=== PATIENT | male | born 1985 | race Two or more races ===

== ENCOUNTER 2025-02-04 13:12 | Inpatient (IN) | payer MEDICAID, OTHER ==
[~2025-02-04] VITALS: Ht 182.9 cm; Wt 111.3 kg
[~2025-02-04 13:12] MED LIST: ASPI1CHW5 PO; ATOR10TA PO; CLOP75TA70 PO; ISOS1TAB28 PO; LOSA-535 PO; NITR0.4S29 SL; PANT40TA2 PO
[2025-02-04 13:36] VITALS: PULSE 110; RESP 20; O2SAT 97
--- NOTE | 2025-02-04 13:53 | ED.PDOC ---
History of Present Illness HPI Comments 39 y.o male with PMHx of HTN and hyperlipidemia, presents to the ED for multiple complaints which include bilateral flank pain, SOB, generalized headache, and a cough with white phlegm sputum that started 1 day ago. Patient reports recent hospital admission at [place] 4 days ago, had an angiogram done and was diagnose with a NV/ heart block. Patient was discharged yesterday but presents today with symptoms describing a "foggy state of mind" with 10/10 bilateral flank pain. Patient reports receiving pain medication such as Morphine at [facility] for his migraine but denied any pain relief. Patient also mentions tachycardiac episodes monitored at home by home pressure machine with HR reading in the 119-120's. Patient denies any chest pain, fever, chills, nausea, vomiting, diarrhea, leg swelling, pain. Patient reports quitting tobacco and marijuana recently and last used 4 days ago. Chief Complaint: Shortness of Breath Time Seen by MD: 13:38 Primary Care Provider: none Reviewed Notes: Nurses Notes, Medications, Allergies Allergies: Coded Allergies: NO KNOWN ALLERGIES (Unverified , 02/04/25) Information Source: Patient Mode of Arrival: Wheelchair Severity: Moderate Timing: Hours Duration: Since onset Prehospital treatment: None Associated signs and symptoms Shortness for breath with weakness and flank pain Past Medical History PAST MEDICAL HISTORY: High Lipids, HTN, NV Surgical History: Cholecystectomy Family History Family History: Family hx of DM, Family hx of Cancer, Family hx of heart rolando, Family hx of stroke Social History Smoker: Quit Less Than 1 Year, Cigarettes Alcohol: Denies ETOH Use Drugs: Marijuana (quit 4 days ago ) Lives In: Home Constitutional: denies: chills, diaphoresis, fatigue, fever, malaise, sweats, weakness, others EENTM: denies: blurred vision, double vision, ear bleeding, ear discharge, ear drainage, ear pain, ear ringing, eye pain, eye redness, hearing loss, mouth pain, mouth swelling, nasal discharge, nose bleeding, nose congestion, nose pain, photophobia, tearing, throat pain, throat swelling, voice changes, others Respiratory: reports: cough, SOB at rest, shortness of breath, SOB with excertion; denies: hemoptysis, orthopnea, stridor, wheezing, others Cardiovascular: denies: chest pain, dizzy spells, diaphoresis, Dyspnea on exertion, edema, irregular heart beat, left arm pain, lightheadedness, palp itations, PND, syncope, others Gastrointestinal: denies: abdomen distended, abdominal pain, blood streaked bowels, constipated, diarrhea, dysphagia, difficulty swallowing, hematemesis, melena, nausea, poor appetite, poor fluid intake, rectal bleeding, rectal pain, vomiting, others Genitourinary: reports: flank pain; denies: burning, dysuria, frequency, hematuria, incontinence, penile discharge, penile sore, pain, testicle pain, testicle swelling, urgency, others Neurological: reports: headache; denies: dizziness, fainting, left sided numbness, left sided weakness, numbness, paresthesia, pre-existing deficit, right sided numbness, right sided weakness, seizure, speech problems, tingling, tremors, weakness, others Musculoskeletal: denies: back pain, gout, joint pain, joint swelling, muscle pain, muscle stiffness, neck pain, others Integumetry: denies: bruises, change in color, change in hair/nails, dryness, laceration, lesions, lumps, rash, wounds, others Allergic/Immunocompromised: denies: Difficulty Healing, Frequent Infections, Hives, Itching, others Hematologic/Lymphatic: denies: anemia, blood clots, easy bleeding, easy bruising, swollen glands, others Endocrine: denies: excessive hunger, excessive sweating, excessive thirst, excessive urination, flushing, intolerance to cold, intolerance to heat, unexplained weight gain, unexplained weight loss, others Psychiatric: denies: anxiety, bipolar disorder, depression, hopeless, panic disorder, schizophrenia, sleepless, suicidal, others All Other Systems: Reviewed and Negative Physical Exam General Appearance: Moderate Distress HEENT: Normal ENT Inspection, Pharynx Normal, TMs Normal Neck: Full Range of Motion, Non-Tender, Normal, Normal Inspection Respiratory: Chest Non-Tender, Lungs Clear, No Accessory Muscle Use, No Respiratory Distress, Normal Breath Sounds Cardiovascular: No Edema, No JVD, No Murmur, No Gallop, Tachycardia Breast Exam: Deferred Gastrointestinal: No Organomegaly, Non Tender, No Pulsatile Mass, Normal Bowel Sounds, Soft Genitalia: Deferred Pelvic: Deferred Rectal: Deferred Extremities: No calf tenderness, Normal capillary refill, No pedal edema Musculoskeletal : Apperance: Normal Neurologic: Alert, tube tester II-XII nml as Tested, Motor Weakness, Normal Affect, Normal Mood, No Sensory Deficits Cerebellar Function: Normal Reflexes: Normal Skin: Dry, Pallor, Warm Lymphatic: No Adenopathy Was a procedure done? Was a procedure done?: No EKG EKG : Pulse Rate (adult): 110 [place]: Normal Cardiac Rhythm: ST Block: None ST: Nonsp Differential Dx Considerations may include: Migraines, PNA, Tachycardia, Electrolyte Imbalance, Dehydration, Viral Syndrome, Kidney stones, UTI, URI X-Ray, Labs, Meds, VS Vital Signs Date Time Temp Pulse Resp B/P (MAP) Pulse Ox O2 Delivery O2 Flow Rate FiO2 02/04/25 18:00 100.4 91 16 123/83 (96) 94 100.4 02/04/25 17:53 93 16 123/83 02/04/25 17:23 122 20 132/84 02/04/25 17:18 110 02/04/25 16:28 122 20 97 Nasal Cannula* 2 28 02/04/25 16:00 103.1 122 20 132/76 (94) 94 103.1 02/04/25 16:00 103.1 113 20 02/04/25 13:36 110 20 97 Room Air* 0 21 02/04/25 13:36 97.9 110 20 116/75 (89) 97 97.9 02/04/25 13:30 110 02/04/25 13:24 98.3 110 20 116/75 (89) 97 98.3 02/04/25 13:23 20 97 Room Air* 0 21 Lab Test 02/04/25 17:50 02/04/25 17:18 02/04/25 15:19 02/04/25 14:04 Range/Units Urine Color Yellow Yellow Urine Clarity Clear Clear Urine pH 6.0 5.0-9.0 Urine Specific [place] 1.042 H 1.001-1.035 Urine Protein 1+ H Negative Urine Ketones 1+ H Negative Urine Blood Negative Negative /uL Urine Nitrite Negative Negative Urine Bilirubin Negative Negative Urine Urobilinogen Normal Negative mg/dL Urine Leukocyte Esterase Negative Negative /uL Urine RBC <1 0 - 3 /hpf Urine Microscopic WBC 1 0-3 /HPF Urine Squamous Epithelial Cells Few <5 /hpf Urine Bacteria None seen None Seen /hpf Urine Granular Casts Few 0 /lpf Urine Mucus Few None Seen Urine Glucose Normal Normal mg/dL Urine Opiates Screen Pending Urine Fentanyl Screen Pending Urine Barbiturates Screen Pending Urine Phencyclidine Screen Pending Urine Amphetamines Screen Pending Urine Benzodiazepines Screen Pending Urine Cocaine Screen Pending Urine Cannabinoids Screen Pending Lactic Acid Level 1.4 0.4-2.0 mmol/L Troponin I High Sensitivity 1263 *H 1088 *H 1190 *H </=54 ng/L White Blood Count 6.2 4.4-10.8 10^3/uL Red Blood Count 5.09 4.5-5.90 10^6/uL Hemoglobin 15.7 13.5-17.5 g/dL Hematocrit 45.9 41.0-53.0 % Mean Corpuscular Volume 90.2 80.0-100.0 fL Mean Corpuscular Hemoglobin 30.9 28.0-32.0 pg Mean Corpuscular Hemoglobin Concent 34.3 32.0-36.0 g/dL Red Cell Distribution Width 12.6 11.8-14.3 % Platelet Count 154 140-450 10^3/uL Mean Platelet Volume 9.2 6.9-10.8 fL Neutrophils (%) (Auto) 82.7 H 37.0-80.0 % Lymphocytes (%) (Auto) 3.7 L 10.0-50.0 % Monocytes (%) (Auto) 12.3 H 0.0-12.0 % Eosinophils (%) (Auto) 0.9 0.0-7.0 % Basophils (%) (Auto) 0.4 0.0-2.0 % Neutrophils # (Auto) 5.1 1.6-8.6 10 ^3/uL Lymphocytes # (Auto) 0.2 L 0.4-5.4 10 ^3/uL Monocytes # (Auto) 0.8 0-1.3 10 ^3/uL Eosinophils # (Auto) 0.1 0-0.8 10 ^3/uL Basophils # (Auto) 0 0-0.2 10 ^3/uL Nucleated Red Blood Cells 0.1 % Sodium Level 137 136-145 mmol/L Potassium Level 4.2 3.5-5.1 mmol/L Chloride Level 105 98-107 mmol/L Carbon Dioxide Level 24 20-31 mmol/L Anion Gap 8 5-15 Blood Urea Nitrogen 18 9-23 mg/dL Creatinine 1.13 0.700-1.30 mg/dL Glomerular Filtration Rate Calc 86 >90 mL/min BUN/Creatinine Ratio 15.9 10.0-20.0 Serum Glucose 95 74-106 mg/dL Calcium Level 10.4 8.7-10.4 mg/dL Current Medications Medications (Trade) Dose Ordered Sig/Froy Route Start Time Stop Time Status Last Admin Hydromorphone HCl (Dilaudid Injection) 1 mg ONCE ONCE IV 02/04/25 14:00 02/04/25 14:01 DC 02/04/25 17:23 Ondansetron HCl (Zofran) 4 mg ONCE ONCE IV 02/04/25 14:00 02/04/25 14:01 DC 02/04/25 17:23 Sodium Chloride 2,350 ml @ 2,350 mls/hr ONCE ONCE IV 02/04/25 17:00 02/04/25 17:59 DC 02/04/25 17:23 Vancomycin HCl 250 ml @ 250 mls/hr ONCE ONCE IV 02/04/25 17:00 02/04/25 17:59 DC 02/04/25 17:24 Ceftriaxone Sodium 50 ml @ 100 mls/hr ONCE ONCE IV 02/04/25 17:00 02/04/25 17:29 DC 02/04/25 17:24 Sodium Chloride 1,000 ml @ 125 mls/hr Q8H ONCE IV 02/04/25 17:00 02/05/25 00:59 02/04/25 18:25 CLINICAL INFORMATION: Headache. IMPRESSION: No CT evidence of acute intracranial abnormality. The patient was given Dilaudid 1 mg IV push for the pain The patient was given Zofran 4 mg IV push for the nausea The patient was given normal saline as a bolus per sepsis protocol Blood cultures x2 were drawn The patient was then given vancomycin and Rocephin IV piggyback following the cultures The patient's troponin level came back at 1190 then went down somewhat then went back up to 1263 The CBC and chemistry panel are within normal limits The urine test is negative for infection The urine tox is pending We did get a Cardiology consult on this patient The patient was now being admitted to the hospitalist We did order sepsis protocol. Images Reviewed?: Images reviewed and evaluated by me Time of 1ST Reevaluation: 13:53 Reevaluation 1ST: Unchanged Patient Education/Counseling: Diagnosis, Treatment, Prognosis Family Education/Counseling: No Family Present Departure 1 Departure Time of Disposition: 18:52 Impression: Primary Impression: Sepsis Qualified Codes: A41.9 - Sepsis, unspecified organism Additional Impressions: Elevated troponin Generalized weakness Disposition: ADMITTED INPATIENT Admit to: Tele Condition: Fair Critical Care Note Critical Care Time?: Yes (55 min-critical care time only) Stability Stability form required: Yes Unstable for transfer: ICU, CCU, PCU, TOM (Intensive VS monitoring), ED Physician Assesment (Clinical assesment) I personally scribed for ALAN HOBBS MD ([email or web address]) on 02/04/25 at 13:53. Electronically submitted by Marietta Raymundo ([facility]). I personally scribed for ALAN HOBBS MD ([email or web address]) on 02/04/25 at 15:26. Electronically submitted by Marietta Raymundo ([facility]). ALAN HOBBS MD Feb 04, 2025 13:53
[2025-02-04 14:26] LABS: Basophils # (auto) 0 10 ^3/uL (0-0.2); Basophils % (auto) 0.4 % (0.0-2.0); Eosinophils # (auto) 0.1 10 ^3/uL (0-0.8); Eosinophils % (auto) 0.9 % (0.0-7.0); Hematocrit 45.9 % (41.0-53.0); Hemoglobin 15.7 g/dL (13.5-17.5); Lymphocytes # (auto) 0.2 10 ^3/uL (0.4-5.4); Lymphocytes % (auto) 3.7 % (10.0-50.0); Mean Corpuscular Hemoglobin 30.9 pg (28.0-32.0); Mean Corpuscular Hgb Conc. 34.3 g/dL (32.0-36.0); Mean Corpuscular Volume 90.2 fL (80.0-100.0); Monocytes # (auto) 0.8 10 ^3/uL (0-1.3); Monocytes % (auto) 12.3 % (0.0-12.0); Neutrophils # (auto) 5.1 10 ^3/uL (1.6-8.6); Neutrophils % (auto) 82.7 % (37.0-80.0); Nucleated Red Blood Cells % 0.1 %; Platelet Count (auto) 154 10^3/uL (140-450); Red Blood Cells 5.09 10^6/uL (4.5-5.90); Red Cell Distribution Width 12.6 % (11.8-14.3); White Blood Cell 6.2 10^3/uL (4.4-10.8)
[2025-02-04 14:31] LABS: Anion Gap 8 (5-15); Carbon Dioxide 24 mmol/L (20-31); Chloride 105 mmol/L (98-107); Potassium 4.2 mmol/L (3.5-5.1); Sodium 137 mmol/L (136-145)
--- NOTE | 2025-02-04 14:31 | DVH ---
CLINICAL INFORMATION: Headache. TECHNIQUE: Axial imaging was obtained through the brain without contrast. Coronal and sagittal reform atted images were obtained, reviewed, and stored. Images were reviewed in brain and bone windows. Al l CT scans at this medical facility are performed using dose modulation techniques as appropriate to a performed exam including the following: Automated exposure control was utilized; adjustment of the MA and/or KV according to patient size; and use of iterative reconstruction technique. CTDIvol = 63.9 2 mGy DLP = 1259.54 mGy-cm COMPARISON: None FINDINGS: There is no acute intracranial hemorrhage. No mass effect or midline shift. The ventricles and sulci are within normal limits in size for age. Basal cisterns are patent. The calvarium is unre markable. Paranasal sinuses and mastoid air cells are clear. IMPRESSION: No CT evidence of acute intracranial abnormality.
[2025-02-04 14:37] LABS: BUN/Creatinine Ratio 15.9 (10.0-20.0); Blood Urea Nitrogen 18 mg/dL (9-23); Glucose 95 mg/dL (74-106)
[2025-02-04 14:42] LABS: Calcium 10.4 mg/dL (8.7-10.4)
--- NOTE | 2025-02-04 16:23 | DVH ---
CHEST RADIOGRAPH Indication: pain Technique: Single frontal view of the chest was obtained Comparison: None FINDINGS: Lines and Tubes: None Lungs: No focal consolidation. Pleura: No effusion. No pneumothorax. Cardiomediastinal contours: Unremarkable Bones: No acute osseous abnormality. IMPRESSION: 1. No acute cardiopulmonary disease.
[2025-02-04 16:28] VITALS: PULSE 122; RESP 20; O2SAT 97
[2025-02-04] MEDS ORDERED: cefTRIAXone 1GM/50ML D5W 50 ML IV ONE (17:00)
[2025-02-04] MEDS ORDERED: MORPHINE SULFATE INJ 2 MG/ml SYRG IV PRN ×2 (17:00→19:00)
[2025-02-04] MEDS: IOHEXOL 300 MG/ML 100ML BOTTLE IJ ONE (17:01)
--- NOTE | 2025-02-04 17:02 | DVHINCON2 ---
Date Seen: Feb 04, 2025 Referring Physician MD Atul Reason for Consultation NSTEMI History of Present Illness A 39-year-old man who presented to the emergency room with a chief complaint of bilateral flank pain. The patient presents with complaints of bilateral flank pain, migraine headache, brain fogginess, a foamy cough, and pyrexia. Cardiology consulted given an initial troponin level in the 1900s ng/L. The patient denies any chest pain. Reports a recent admission to [facility] where he underwent a cardiac catheterization without catheter based intervention with paperwork at bedside stating he was admitted for ACS and uncontrolled hypertension. Discharge instructions included the diagnosis of spontaneous coronary artery dissection. He was sent home on dual antiplatelet t herapy, statin, isosorbide mononitrate, and NTG SL p.r.n.. A 12 lead electrocardiogram revealed a sinus tachycardia rhythm without evidence of ischemia. Other significant medical history includes hypertension, migraine headaches, cannabinoid use, recent tobacco use x 24 pack years quitting this past , remote history of cocaine/methamphetamines quitting 3 years ago, and obesity. Past Medical History Past medical history reviewed. No other significant than mentioned above. Past Surgical History Cholecystectomy Family History Family history reviewed. Maternal grandmother with multiple CVAs and MIs. Social History See HPI. Allergies: Coded Allergies: NO KNOWN ALLERGIES (Unverified , 02/04/25) Home Meds Home medications reviewed. Review of Systems Constitutional: No symptom reported Ears, Nose, & Throat: No symptom reported Eyes: No symptom reported Neurological: Migraine headache, foggy mentation Pulmonary/Respiratory: Foamy cough Cardiovascular: No symptom reported Gastrointestinal: Bilateral flank pain Genitourinary: No symptom reported Musculoskeletal: No symptom reported Skin: No symptom reported Psychiatric: No symptom reported Endocrine: No symptom reported Hemotologic/Lymphatic: No symptom reported Vital Signs Vital Signs Date Time Temp Pulse Resp B/P (MAP) Pulse Ox O2 Delivery O2 Flow Rate FiO2 02/04/25 16:28 122 20 97 Nasal Cannula* 2 28 02/04/25 16:00 98.3 132/76 (94) 98.3 Physical Exam General Appearance: Cooperative. Well developed. Obese. Mild acute distress Head Exam: Normal inspection Neck Exam: Normal inspection. Non-tender. Normal alignment Pulmonary/Respiratory: Chest non-tender. Clear bilateral breath sounds Cardiovascular/Chest: Regular rate and rhythm. S1, S2. Sinus tachycardia without evidence of ischemia. No murmurs. No JVD. Peripheral Pulses: 2+ Radial (R). 2+ Radial (L). 2+ Pedal (R). 2+ Pedal (L) Abdominal Exam: Normal bowel sounds. Soft. Ankle Exam: Negative ankle edema Lower extremities: Negative lower extremity edema Neuro/Mental Status: A&O x4. Coherent Thoughts/Psych: Normal thought pattern. Anxious Appearance: Mild acute distress Skin Exam: Normal inspection. Normal color. Hot. Dry Labs/Diagnostic Data Labs Test 02/04/25 15:19 02/04/25 14:04 Range/Units Troponin I High Sensitivity 1088 *H </=54 ng/L White Blood Count 6.2 4.4-10.8 10^3/uL Red Blood Count 5.09 4.5-5.90 10^6/uL Hemoglobin 15.7 13.5-17.5 g/dL Hematocrit 45.9 41.0-53.0 % Mean Corpuscular Volume 90.2 80.0-100.0 fL Mean Corpuscular Hemoglobin 30.9 28.0-32.0 pg Mean Corpuscular Hemoglobin Concent 34.3 32.0-36.0 g/dL Red Cell Distribution Width 12.6 11.8-14.3 % Platelet Count 154 140-450 10^3/uL Mean Platelet Volume 9.2 6.9-10.8 fL Neutrophils (%) (Auto) 82.7 H 37.0-80.0 % Lymphocytes (%) (Auto) 3.7 L 10.0-50.0 % Monocytes (%) (Auto) 12.3 H 0.0-12.0 % Eosinophils (%) (Auto) 0.9 0.0-7.0 % Basophils (%) (Auto) 0.4 0.0-2.0 % Neutrophils # (Auto) 5.1 1.6-8.6 10 ^3/uL Lymphocytes # (Auto) 0.2 L 0.4-5.4 10 ^3/uL Monocytes # (Auto) 0.8 0-1.3 10 ^3/uL Eosinophils # (Auto) 0.1 0-0.8 10 ^3/uL Basophils # (Auto) 0 0-0.2 10 ^3/uL Nucleated Red Blood Cells 0.1 % Sodium Level 137 136-145 mmol/L Potassium Level 4.2 3.5-5.1 mmol/L Chloride Level 105 98-107 mmol/L Carbon Dioxide Level 24 20-31 mmol/L Anion Gap 8 5-15 Blood Urea Nitrogen 18 9-23 mg/dL Creatinine 1.13 0.700-1.30 mg/dL Glomerular Filtration Rate Calc 86 >90 mL/min BUN/Creatinine Ratio 15.9 10.0-20.0 Serum Glucose 95 74-106 mg/dL Calcium Level 10.4 8.7-10.4 mg/dL Assessment NSTEMI with recent diagnosis of spontaneous coronary artery dissection Hypertension Recent tobacco use Cannabinoid use Obesity Plan/Recommendation (Dr. Stephens) The patient with a baseline troponin level of 1900s ng/L presents chest pain- free and with a normal 12 lead electrocardiogram without evidence of ischemia. Reports being discharged from [facility] where he underwent a recent cardiac catheterization without catheter based intervention and paperwork with diagnosis of SCAD. He was discharged home last night with DAPT, lipid lowering agent, isosorbide mononitrate, and NTG SL p.r.n. Obtain medical records including cardiac catheterization and transthoracic echocardiogram. Trend troponin levels. Consider septic workup and rule out an acute abdomen/urinary etiologies. Further orders per clinical course. Thank you for allowing us to participate in this patient's care. Please call if you have any questions or concerns. Critical care time: 40 min. This medical document was created using an electronic medical record system with voice recognition software and computerized dictation system. Although this document has been carefully reviewed, there might still be some phonetic and typographical errors. Occasional wrong-word or ``sound-alike substitutions may have occurred due to the inherent limitations of voice recognition software. These areas are purely typographical due to imperfections of the software programs and do not reflect any compromise in the patient's medical care. Please read the chart carefully and recognize, using context, where these substitutions have occurred. Plan discussed with: Patient, Other NYHA Physical activity limitations: NA Date of Service: Feb 04, 2025 Billing Provider: STEFFANY MAGANA Cardiology Common Codes: 83335-[id number] CARE 30-74 MIN STEFFANY MAGANA Feb 04, 2025 17:02
[2025-02-04] MEDS: SODIUM CHLORIDE 0.9% 2,350 ML IV ONE (17:23)
[2025-02-04] MEDS: HYDROmorphone HCL 2 MG/ML VL/or syr IV ONE (17:23)
[2025-02-04] MEDS: ONDANSETRON HCL 4 MG/2 ML VIAL IV ONE (17:23)
[2025-02-04] MEDS: VANCOMYCIN 1GM/250ML KIT 250 ML IV ONE (17:24)
[2025-02-04] MEDS: cefTRIAXone 1GM/50ML D5W 50 ML IV ONE (17:24)
[2025-02-04 18:23] LABS: Urine Bacteria None Seen /hpf (None Seen)
[2025-02-04] MEDS: SODIUM CHLORIDE 0.9% 1,000 ML IV ONE (18:25)
[2025-02-04] MEDS: NICOTINE 14 MG/24HR TOPICAL PATCH TD ONE (18:26)
--- NOTE | 2025-02-04 18:26 | DVH ---
Exam: CT CT AB PELVIS W WO CON-IV ONLY History: Flank pain bilaterally Comparison Study: None available at time of dictation. Technique: Multidetector spiral CT of the abdomen and pelvis was performed from lung bases to pubic s ymphysis. Initial imaging was done without IV contrast, followed by post contrast images of the abdom en and pelvis. Intravenous contrast was administered during this examination. portal venous/arterial/ multiphase imaging was obtained. Axial, coronal and sagittal multiplanar reformats were performed by the technologist on a separate workstation. Radiation Dose : CT Dose: CTDI volume is 23 mGy. Dose-length product is 1354 mGy*cm Findings: Lung Bases: No acute or significant lung base finding. Normal heart size. No pleural or pericardial effusion. Liver: The liver is normal in size. No focal lesions. Normal hepatic vascular enhancement. Gallbladder and Biliary Tree: Gallbladder has been removed. No biliary dilatation. Spleen: Unremarkable Pancreas: The pancreas is normal in appearance without focal lesions or abnormal enhancement. Adrenal Glands: Unremarkable Kidneys: Kidneys demonstrate normal symmetric enhancement without focal lesions, calculi or hydroneph rosis. Bladder: Unremarkable Bowel: The stomach is grossly normal in appearance. Small bowel and colon are normal in caliber and d istribution. The appendix is not visualized; however, no secondary findings of acute appendicitis brisa ntified. Ascites: Absent Lymphadenopathy: No mesenteric, retroperitoneal or periportal lymphadenopathy. Abdominal Wall and Mesentery: Unremarkable. Vasculature: The visualized abdominal aorta is normal in size and caliber. Abdominal and pelvic vess els demonstrate normal enhancement. Pelvic Organs: Unremarkable Musculoskeletal: No aggressive focal bony lesions, acute fractures or dislocation. IMPRESSION: 1. No acute abdominal or pelvic finding. No evidence of urinary tract stones or obstructive uropathy. Radiation optimization: All CT scans at this facility use at least one of these dose optimization zach hniques: automated exposure control mA and/or kV adjustment per patient size (includes targeted exam s where dose is matched to clinical indication) or iterative reconstruction.
[2025-02-04 18:49] LABS: Urine Blood Negative /uL (Negative); Urine Clarity Clear (Clear); Urine Color Yellow (Yellow); Urine Mucus FEW (None Seen); Urine Protein, UAD 1+ (Negative); Urine Specific Gravity 1.042 (1.001-1.035); Urine Squamous Epithelial Cell FEW /hpf (<5); Urine Urobilinogen Normal (Negative); Urine WBC 1 /HPF (0-3)
[2025-02-04 18:53] LABS: Cannabinoid Screen, Urine Pos (NEGATIVE); Opiate Scree,Urine Neg (NEGATIVE)
[2025-02-04 18:54] LABS: Amphetamine Screen, Urine Neg (NEGATIVE); Barbiturate Scree,Urine Neg (NEGATIVE); Benzodiazephine Screen, Urine Neg (NEGATIVE); Cocaine Screen, Urine Neg (NEGATIVE); Phencyclidine Screen, Urine Neg (NEGATIVE)
[2025-02-04] MEDS ORDERED: ONDANSETRON HCL 4 MG/2 ML VIAL IV PRN (19:00)
[2025-02-04] MEDS ORDERED: NITROGLYCERIN 0.4 MG SL TAB SL PRN (19:00)
[2025-02-04 19:30] VITALS: PULSE 86; RESP 15; O2SAT 99
[2025-02-04] MEDS: HYDROcodone-ACET 5/325MG TAB PO PRN (20:54)
[2025-02-04] MEDS: ATORVASTATIN 20 MG TAB PO SCH (22:19)
--- NOTE | 2025-02-04 22:38 | DVHHP2 ---
History of Present Illness Reason for Visit: Generalized weakness History of Present Illness 39-year-old female presents for evaluation of generalized weakness. . Patient reports being discharged from [facility] three days ago after being admitted and treated for an SD. he states being discharged yesterday and since then he has been feeling weak. He reports shortness for breath with mild exertion. Denies chest pain or palpitations. Reports bilateral flank pain. No abdominal pain. No other acute complaints reported Past Medical History Hypertension, mi, dyslipidemia Past Surgical History Cholecystectomy Family History Diabetes mellitus, heart disease and cancer Smoke: Quit ALCOHOL: none Drugs: Marijuana Lives: with Family Review of Systems Review of Systems Review of systems are currently negative otherwise addressed in HPI. Allergies: Coded Allergies: NO KNOWN ALLERGIES (Unverified , 02/04/25) Medications Current Medications Medications Dose Ordered Sig/Froy Route Start Time Stop Time Status Last Admin Dose Admin Nicotine 1 patch DAILY TD 02/05/25 10:00 Aspirin 81 mg DAILY PO 02/05/25 10:00 Clopidogrel Bisulfate 75 mg DAILY PO 02/05/25 10:00 Atorvastatin Calcium 20 mg HS PO 02/04/25 22:00 02/04/25 22:19 20 MG Isosorbide Mononitrate 30 mg DAILY PO 02/05/25 10:00 Nitroglycerin 0.4 mg Q5MINP PRN SL 02/04/25 19:00 Morphine Sulfate 2 mg Q30M PRN IV 02/04/25 19:00 Ceftriaxone Sodium 50 ml @ 100 mls/hr DAILY@09 IV 02/05/25 09:00 Acetaminophen/ Hydrocodone Bitart 1 tab Q4HP PRN PO 02/04/25 19:00 02/04/25 20:54 1 TAB Ondansetron HCl 4 mg Q4HP PRN IV 02/04/25 19:00 Acetaminophen 650 mg Q6HP PRN PO 02/04/25 19:00 Exam Vital Signs Vital Signs Date Time Temp Pulse Resp B/P (MAP) Pulse Ox O2 Delivery O2 Flow Rate FiO2 02/04/25 21:55 84 18 138/86 (103) 99 02/04/25 19:30 98.3 98.3 02/04/25 19:30 Room Air* 0 21 Exam Gen: 39-year-old male in mild distress Skin: Warm, dry, normal color and texture, no rash. HEENT: Normocephalic atraumatic, mucous membranes moist and pink. Neck: Cervical and supraclavicular nodes normal without enlargement, trachea is midline, thyroid gland is normal without masses. Pulmonary: Clear to auscultation and percussion bilaterally. Cardiac: Regular rate and rhythm. No murmur Abdomen: Soft, nontender, nondistended, bowel sounds present all 4 quadrants, no guarding, no rigidity, no organomegaly. Extremities: No cyanosis, clubbing, no edema Neuro: Cranial nerves II through XII grossly intact, normal affect and speech, no focal motor deficits. Labs/Xrays ORDERING PHYSICIAN: ALAN HOBBS MD PROCEDURE(s): HWOCT - HEAD WITHOUT CONTRAST REASON: BRYANT ORDER NUMBER(s): [id number], ACCESSION NUMBER(s): [id number] CLINICAL INFORMATION: Headache. TECHNIQUE: Axial imaging was obtained through the brain without contrast. Coronal and sagittal reformatted images were obtained, reviewed, and stored. Images were reviewed in brain and bone windows. All CT scans at this medical facility are performed using dose modulation techniques as appropriate to a performed exam including the following: Automated exposure control was utilized; adjustment of the MA and/or KV according to patient size; and use of iterative reconstruction technique. CTDIvol = 63.92 mGy DLP = 1259.54 mGy-cm COMPARISON: None FINDINGS: There is no acute intracranial hemorrhage. No mass effect or midline shift. The ventricles and sulci are within normal limits in size for age. Basal cisterns are patent. The calvarium is unremarkable. Paranasal sinuses and mastoid air cells are clear. IMPRESSION: No CT evidence of acute intracranial abnormality. RING PHYSICIAN: ALAN HOBBS MD PROCEDURE(s): CXRP - CHEST PORTABLE REASON: pain ORDER NUMBER(s): [id number], ACCESSION NUMBER(s): [id number] CHEST RADIOGRAPH Indication: pain Technique: Single frontal view of the chest was obtained Comparison: None FINDINGS: Lines and Tubes: None Lungs: No focal consolidation. Pleura: No effusion. No pneumothorax. Cardiomediastinal contours: Unremarkable Bones: No acute osseous abnormality. IMPRESSION: 1. No acute cardiopulmonary disease. RING PHYSICIAN: STEFFANY MAGANA TEACHER [place] PROCEDURE(s): ABPEL - CT AB PELVIS W WO CON-IV ONLY REASON: Flank pain bilaterally ORDER NUMBER(s): [id number], ACCESSION NUMBER(s): [id number] Exam: CT CT AB PELVIS W WO CON-IV ONLY History: Flank pain bilaterally Comparison Study: None available at time of dictation. Technique: Multidetector spiral CT of the abdomen and pelvis was performed from lung bases to pubic symphysis. Initial imaging was done without IV contrast, followed by post contrast images of the abdomen and pelvis. Intravenous contrast was administered during this examination. portal venous/arterial/multiphase imaging was obtained. Axial, coronal and sagittal multiplanar reformats were performed by the technologist on a separate workstation. Radiation Dose : CT Dose: CTDI volume is 23 mGy. Dose-length product is 1354 mGy*cm Findings: Lung Bases: No acute or significant lung base finding. Normal heart size. No pleural or pericardial effusion. Liver: The liver is normal in size. No focal lesions. Normal hepatic vascular enhancement. Gallbladder and Biliary Tree: Gallbladder has been removed. No biliary dilatation. Spleen: Unremarkable Pancreas: The pancreas is normal in appearance without focal lesions or abnormal enhancement. Adrenal Glands: Unremarkable Kidneys: Kidneys demonstrate normal symmetric enhancement without focal lesions, calculi or hydronephrosis. Bladder: Unremarkable Bowel: The stomach is grossly normal in appearance. Small bowel and colon are normal in caliber and distribution. The appendix is not visualized; however, no secondary findings of acute appendicitis identified. Ascites: Absent Lymphadenopathy: No mesenteric, retroperitoneal or periportal lymphadenopathy. Abdominal Wall and Mesentery: Unremarkable. Vasculature: The visualized abdominal aorta is normal in size and caliber. Abdominal and pelvic vessels demonstrate normal enhancement. Pelvic Organs: Unremarkable Musculoskeletal: No aggressive focal bony lesions, acute fractures or dislocation. IMPRESSION: 1. No acute abdominal or pelvic finding. No evidence of urinary tract stones or obstructive uropathy. Radiation optimization: All CT scans at this facility use at least one of these dose optimization techniques: automated exposure control mA and/or kV adjustment per patient size (includes targeted exams where dose is matched to clinical indication) or iterative reconstruction. Labs Test 3/17/25 17:50 02/04/25 17:18 02/04/25 14:04 Range/Units Urine Color Yellow Yellow Urine Clarity Clear Clear Urine pH 6.0 5.0-9.0 Urine Specific [place] 1.042 H 1.001-1.035 Urine Protein 1+ H Negative Urine Ketones 1+ H Negative Urine Blood Negative Negative /uL Urine Nitrite Negative Negative Urine Bilirubin Negative Negative Urine Urobilinogen Normal Negative mg/dL Urine Leukocyte Esterase Negative Negative /uL Urine RBC <1 0 - 3 /hpf Urine Microscopic WBC 1 0-3 /HPF Urine Squamous Epithelial Cells Few <5 /hpf Urine Bacteria None seen None Seen /hpf Urine Granular Casts Few 0 /lpf Urine Mucus Few None Seen Urine Glucose Normal Normal mg/dL Urine Opiates Screen Neg NEGATIVE Urine Fentanyl Screen Neg NEGATIVE Urine Barbiturates Screen Neg NEGATIVE Urine Phencyclidine Screen Neg NEGATIVE Urine Amphetamines Screen Neg NEGATIVE Urine Benzodiazepines Screen Neg NEGATIVE Urine Cocaine Screen Neg NEGATIVE Urine Cannabinoids Screen Pos NEGATIVE Lactic Acid Level 1.4 0.4-2.0 mmol/L Troponin I High Sensitivity 1263 *H </=54 ng/L White Blood Count 6.2 4.4-10.8 10^3/uL Red Blood Count 5.09 4.5-5.90 10^6/uL Hemoglobin 15.7 13.5-17.5 g/dL Hematocrit 45.9 41.0-53.0 % Mean Corpuscular Volume 90.2 80.0-100.0 fL Mean Corpuscular Hemoglobin 30.9 28.0-32.0 pg Mean Corpuscular Hemoglobin Concent 34.3 32.0-36.0 g/dL Red Cell Distribution Width 12.6 11.8-14.3 % Platelet Count 154 140-450 10^3/uL Mean Platelet Volume 9.2 6.9-10.8 fL Neutrophils (%) (Auto) 82.7 H 37.0-80.0 % Lymphocytes (%) (Auto) 3.7 L 10.0-50.0 % Monocytes (%) (Auto) 12.3 H 0.0-12.0 % Eosinophils (%) (Auto) 0.9 0.0-7.0 % Basophils (%) (Auto) 0.4 0.0-2.0 % Neutrophils # (Auto) 5.1 1.6-8.6 10 ^3/uL Lymphocytes # (Auto) 0.2 L 0.4-5.4 10 ^3/uL Monocytes # (Auto) 0.8 0-1.3 10 ^3/uL Eosinophils # (Auto) 0.1 0-0.8 10 ^3/uL Basophils # (Auto) 0 0-0.2 10 ^3/uL Nucleated Red Blood Cells 0.1 % Sodium Level 137 136-145 mmol/L Potassium Level 4.2 3.5-5.1 mmol/L Chloride Level 105 98-107 mmol/L Carbon Dioxide Level 24 20-31 mmol/L Anion Gap 8 5-15 Blood Urea Nitrogen 18 9-23 mg/dL Creatinine 1.13 0.700-1.30 mg/dL Glomerular Filtration Rate Calc 86 >90 mL/min BUN/Creatinine Ratio 15.9 10.0-20.0 Serum Glucose 95 74-106 mg/dL Calcium Level 10.4 8.7-10.4 mg/dL B-Type Natriuretic Peptide 32.65 0-100 pg/mL Assessment/Plan Assessment/Plan Assessment NSTEMI History of SD Hypertension Sirs Plan Admit the patient to telemetry to the hospitalist Cardiology consultation Rocephin Blood culture pending Resume home medications Continue treatment per orders. Plan discussed with: Patient My Orders Orders - TISHA ENCISO Procedure Category Date Status Time Admit ADMIT 02/04/25 Transmitted 18:46 Nitroglycerin PHA 02/04/25 In Process Sublingual (Ntrostat 19:00 Morphine Sulfate PHA 02/04/25 In Process Injection 19:00 Oxygen By Nasal RT 02/04/25 Transmitted Cannula 18:46 Ceftriaxone 1gm/50ml PHA 02/05/25 In Process D5w (Rocephin) 09:00 Hydrocodone-Acet PHA 02/04/25 In Process 5/325mg Tab ([place] 19:00 Ondansetron Hcl PHA 02/04/25 In Process (Zofran) 19:00 Cardiac DIET 02/05/25 Transmitted Diet-2gna,Lofat,Lochol Breakfast Condition: Fair KORIN 02/04/25 In Process 18:50 Acetaminophen Tablet PHA 02/04/25 In Process (Tylenol Tablet) 19:00 Bedrest With Bathroom KORIN 02/04/25 In Process Privileg 18:50 Basic Metabolic Panel LAB 02/05/25 Verified 04:00 Complete Blood Count LAB 02/05/25 Verified 04:00 Date of Service: Feb 04, 2025 Billing Provider: TISHA ENCISO Common Visit Codes: [id number] INP/OBS CARE (HIGH) TISHA ENCISO Feb 04, 2025 22:38
[2025-02-05 04:23] LABS: Hematocrit 39.9 % (41.0-53.0); Hemoglobin 13.7 g/dL (13.5-17.5); Mean Corpuscular Hemoglobin 30.6 pg (28.0-32.0); Mean Corpuscular Hgb Conc. 34.2 g/dL (32.0-36.0); Mean Corpuscular Volume 89.5 fL (80.0-100.0); Platelet Count (auto) 124 10^3/uL (140-450); Red Blood Cells 4.46 10^6/uL (4.5-5.90); Red Cell Distribution Width 12.4 % (11.8-14.3); White Blood Cell 5.4 10^3/uL (4.4-10.8)
[2025-02-05 04:26] LABS: Sodium 139 mmol/L (136-145)
[2025-02-05 04:27] LABS: Anion Gap 8 (5-15); Calcium 8.8 mg/dL (8.7-10.4); Carbon Dioxide 23 mmol/L (20-31)
[2025-02-05 04:31] LABS: Basophils % (manual) 0 (0.0-2.0); Blast Cells 0; Eosinophils % (manual) 0 (0-7); Metamyelocytes % 0; Myelocytes % 0; Promyelocytes % 0; Reactive Lymphocytes 0
[2025-02-05 04:32] LABS: BUN/Creatinine Ratio 13.3 (10.0-20.0); Blood Urea Nitrogen 14 mg/dL (9-23); Chloride 108 mmol/L (98-107); Glucose 94 mg/dL (74-106)
[2025-02-05 05:20] LABS: Band Neutrophils % (manual) 7; Lymphocytes % (manual) 16 (10.0-50.0); Monocytes % (manual) 12 (0-12)
[2025-02-05 05:21] LABS: Platelet Estimate Decreased
[2025-02-05 08:41] VITALS: PULSE 78; RESP 17; O2SAT 95
[2025-02-05 08:46] LABS: Albumin 4.1 g/dL (3.2-4.8); Bilirubin, Direct 0.2 mg/dL (<0.3); Bilirubin, Total 0.4 mg/dL (0.2-1.0); Magnesium 1.7 mg/dL (1.6-2.6); Total Protein 6.5 g/dL (5.7-8.2)
[2025-02-05 08:56] LABS: CRP High Sensitivity 1.84 mg/dL (<1.0)
[2025-02-05 08:57] LABS: INR 0.97 (0.9-1.15); Prothrombin Time 10.3 sec (9.3-11.8)
[2025-02-05] MEDS ORDERED: cefTRIAXone 1GM/50ML D5W 50 ML IV SCH (09:00)
[2025-02-05 09:28] LABS: Erythrocyte Sedimentation Rate 10 mm/hr (0-20)
[2025-02-05] MEDS: ISOSORBIDE MONONITRATE ER 60 MG TAB PO SCH (10:00)
[2025-02-05] MEDS: NICOTINE 14 MG/24HR TOPICAL PATCH TD SCH (10:00)
[2025-02-05] MEDS: cefTRIAXone 1GM/50ML D5W 50 ML IV SCH (10:52)
[2025-02-05] MEDS: ASPirin 81 mg TAB PO SCH (10:53)
[2025-02-05] MEDS: CLOPIDOGREL BISULFATE 75 MG TAB PO SCH (10:53)
--- NOTE | 2025-02-05 11:02 | DVHPN2 ---
[facility] 02/05/25 1102: Consult Progress Note Date Seen: Feb 05, 2025 Subjective Review of Systems: CVS:Normal, RESPIRATORY:Normal, NEURO:Abnormal Other Systems: C/o persistent BRYANT Objective vital signs Vital Sign Date Time Temp Pulse Resp B/P (MAP) Pulse Ox O2 Delivery O2 Flow Rate FiO2 02/05/25 08:41 78 17 95 Room Air* 0 21 02/05/25 08:00 98.1 128/79 (95) 98.1 Total Intake and Output 02/04/25 02/04/25 02/05/25 15:00 23:00 07:00 Intake Total 2650 ml Output Total 200 ml Balance 2450 ml medications Current Medications Medications Dose Ordered Sig/Froy Route Start Time Stop Time Status Last Admin Dose Admin Nicotine 1 patch DAILY TD 02/05/25 10:00 Aspirin 81 mg DAILY PO 02/05/25 10:00 02/05/25 10:53 81 MG Clopidogrel Bisulfate 75 mg DAILY PO 02/05/25 10:00 02/05/25 10:53 75 MG Atorvastatin Calcium 20 mg HS PO 02/04/25 22:00 02/04/25 22:19 20 MG Isosorbide Mononitrate 30 mg DAILY PO 02/05/25 10:00 Nitroglycerin 0.4 mg Q5MINP PRN SL 02/04/25 19:00 Morphine Sulfate 2 mg Q30M PRN IV 02/04/25 19:00 Ceftriaxone Sodium 50 ml @ 100 mls/hr DAILY@09 IV 02/05/25 09:00 02/05/25 10:52 100 MLS/HR Acetaminophen/ Hydrocodone Bitart 1 tab Q4HP PRN PO 02/04/25 19:00 02/04/25 20:54 1 TAB Ondansetron HCl 4 mg Q4HP PRN IV 02/04/25 19:00 Acetaminophen 650 mg Q6HP PRN PO 02/04/25 19:00 Ergocalciferol 50,000 unit Q7D PO 02/05/25 10:00 Examination: LUNGS:Normal, CVS:Normal (NSR), NEURO:Normal laboratory and microbiology Laboratory Tests 02/05/25 03:54 Test 02/05/25 03:54 Range/Units Serum Glucose 94 74-106 mg/dL Problem List/Assessment/Plan Problem List/Assessment/Plan NSTEMI with recent diagnosis of spontaneous coronary artery dissection Hypertension Recent tobacco use Cannabinoid use Obesity Plan/Recommendation (Dr. Arrieta) The patient with flat troponin levels in the 1000s ng/L continues chest pain- free and with normal 12-lead electrocardiograms (02/04/25 & 02/05/25) without evidence of ischemia. He was recently discharged from [facility] undergoing a recent cardiac catheterization without catheter based intervention and paperwork with diagnosis of SCAD. He was discharged home on DAPT, lipid lowering agent, isosorbide mononitrate, and NTG SL p.r.n. Obtain medical records including cardiac catheterization and transthoracic echocardiogram. Continue septic work-up per primary care team. Consider a brain MRI given persistent BRYANT. Further orders per clinical course. Thank you for allowing us to participate in this patient's care. Please call if you have any questions or concerns. This medical document was created using an electronic medical record system with voice recognition software and computerized dictation system. Although this document has been carefully reviewed, there might still be some phonetic and typographical errors. Occasional wrong-word or ``sound-alike substitutions may have occurred due to the inherent limitations of voice recognition software. These areas are purely typographical due to imperfections of the software programs and do not reflect any compromise in the patient's medical care. Please read the chart carefully and recognize, using context, where these substitutions have occurred. Plan discussed with: Patient, Other Date of Service: Feb 05, 2025 Billing Provider: ALLY MAGANA Cardiology Common Codes: [id number] HOSP CARE(CHRISTIANO Grace DO 02/05/25 1948: Consult Progress Note Problem List/Assessment/Plan Problem List/Assessment/Plan The patient was seen and discussed with Ally Magana NP. I agree with her Assessment and Plan, which was formulated with me. Plan discussed with: Patient Billing Provider: CHRISTIANO ANAYA DO Cardiology Common Codes: [id number] HOSP CARE(ALLY Rodriguez Feb 05, 2025 11:02 CHRISTIANO ANAYA DO Feb 05, 2025 19:48
[2025-02-05 11:05] LABS: T3 Total 0.85 ng/mL (0.60-1.81)
[2025-02-05] MEDS: ERGOCALCIFEROL 50,000 UNIT(1.25MG) CAP PO SCH (11:05)
--- NOTE | 2025-02-05 11:05 | ECG ---
[facility] Test Date: 2025-02-05 Test Time: 11:03:22 Pat Name: CARLOS LAMAR Department: er Room: 0282T Gender: M Planner: neeru : 1985 Requested By: STEFFANY MAGANA Order Number: [id number] Reading MD: Kin Scanlon Measurements Intervals [place] Rate: 77 P: 37 SD: 132 QRS: 77 QRSD: 120 T: 37 QT: 391 QTc: 443 Interpretive Statements Sinus rhythm IVCD, consider atypical RBBB ST elevation, consider inferior injury Baseline wander in lead(s) V1 Electronically Signed On 02-06-2025 22:37:45 PDT by Kin Scanlon Please click the below link to view image of tracing.
[2025-02-05 11:06] LABS: Free T4 (Free Thyroxine) 1.14 ng/dL (0.89-1.76)
[2025-02-05] MEDS: MAGNESIUM SULFATE 1GM/100ML 100 ML IV ONE (11:47)
--- NOTE | 2025-02-05 12:29 | DVH ---
INDICATION: transamnitis, and B/l CVA tenderness TECHNIQUE: Multiple real-time sonographic images of the abdomen were obtained. COMPARISON: None FINDINGS: Liver is increased in echogenicity. The liver measures 15 cm. No intrahepatic biliary ductal dilatation is noted. Post cholecystectomy. The common duct measures 1.3 cm and is unremarkable. The right kidney measures 11.0 cm. No hydronephrosis. The left kidney measures 10.1 cm. No hydronephr osis. The spleen measures 13.0 cm, within normal limits. The echogenicity is within normal limits. The pancreas is not well visualized due to obscuration from bowel gas. The visualized portions of the IVC and aorta are grossly unremarkable. IMPRESSION: Hepatic steatosis. Spleen is top-normal in size. Common bile duct measures 1.3 cm. This is likely slightly enlarged post cholecystectomy. Clinical cor relation advised.
[2025-02-05 13:02] LABS: Rapid Influenza A Negative (Negative); Rapid Influenza B Negative (Negative)
[2025-02-05 13:12] LABS: COVID19 ANTIGEN SOFIA FIA POSITIVE (NEGATIVE)
--- NOTE | 2025-02-05 15:24 | DVHPNRES ---
Progress Note Date Seen: Feb 05, 2025 Resident Creating Document: HSARRON WORLEY RESIDENT Medical Necessity Reason Pt with a Central, PICC or Fol: No Subjective Review of Systems 39-year-old male with past medical history of dyslipidemia, hypertension, cholecystectomy who presented to the ER with a chief fever, chills and bilateral flank pain. Patient was recently hospitalized [facility] for chest pain where he was diagnosed with a spontaneous coronary artery dissection of an angiogram was performed, no stent was placed and patient was discharged on aspirin, atorvastatin, Plavix, Imdur and sublingual nitroglycerin patient went home and developed bilateral flank pain radiating to the groin, turbid urine, but denies hematuria or dysuria or urgency. In the ER, patient was febrile at 100.4 F, now afebrile. He was tachycardic but normotensive on room air, CBC was unremarkable. Tropes were trending up 1200, now trending down. BNP was 32, Cardiology was consulted recommended monitor troponin, initiated aspirin and Plavix and Imdur. Head CT was completed which showed unremarkable, abdominal CT was unremarkable, chest x-ray was negative. Liver ultrasound showed status post cholecystectomy changes along with CBD dilation. MRCP was ordered. Past medical/surgical history: See above Home medications: Aspirin, Plavix, atorvastatin, Imdur, sublingual nitroglycerin Social history: Smokes a pack of cigarettes for the past 20 years, quit 1 week, reports remote history of cocaine and meth he was 3 years ago, quit Patient seen and examined in the ER. MRCP is pending. Objective vital signs Vital Sign Date Time Temp Pulse Resp B/P (MAP) Pulse Ox O2 Delivery O2 Flow Rate FiO2 02/05/25 14:00 70 15 123/85 (98) 95 02/05/25 08:41 Room Air* 0 21 02/05/25 08:00 98.1 98.1 Total Intake and Output 02/04/25 02/04/25 02/05/25 15:00 23:00 07:00 Intake Total 2650 ml Output Total 200 ml Balance 2450 ml medications Current Medications Medications Dose Ordered Sig/Froy Route Start Time Stop Time Status Last Admin Dose Admin Nicotine 1 patch DAILY TD 02/05/25 10:00 Aspirin 81 mg DAILY PO 02/05/25 10:00 02/05/25 10:53 81 MG Clopidogrel Bisulfate 75 mg DAILY PO 02/05/25 10:00 02/05/25 10:53 75 MG Atorvastatin Calcium 20 mg HS PO 02/04/25 22:00 02/04/25 22:19 20 MG Isosorbide Mononitrate 30 mg DAILY PO 02/05/25 10:00 Nitroglycerin 0.4 mg Q5MINP PRN SL 02/04/25 19:00 Morphine Sulfate 2 mg Q30M PRN IV 02/04/25 19:00 Ceftriaxone Sodium 50 ml @ 100 mls/hr DAILY@09 IV 02/05/25 09:00 02/05/25 10:52 100 MLS/HR Acetaminophen/ Hydrocodone Bitart 1 tab Q4HP PRN PO 02/04/25 19:00 02/04/25 20:54 1 TAB Ondansetron HCl 4 mg Q4HP PRN IV 02/04/25 19:00 Acetaminophen 650 mg Q6HP PRN PO 02/04/25 19:00 Ergocalciferol 50,000 unit Q7D PO 02/05/25 10:00 02/05/25 11:05 50,000 UNIT Examination Patient lying in bed, in no acute distress General: Well-built, afebrile, palor, mucosae are moist Cardiovascular: Regular S1 and S2. No murmurs, gallops or rubs. No JVD elevation. No pedal edema Respiratory: Normal B/L air entry on room air. Clear lung sounds on auscultation Abdomen: Soft, nontender, nondistended, normoactive bowel sounds, no rebound tenderness, no organomegaly, no masses bilateral costovertebral angle tenderness Genitourinary: Deferred MSK/skin: Mobilizes 4 limbs. Skin is dry and warm Neurological: No motor, no sensitive deficits, normal speech. Pupils are isocoric and reactive. Psych/Mental Status: A/Ox3 laboratory and microbiology Laboratory Tests 02/05/25 03:54 Test 02/05/25 03:54 Range/Units Serum Glucose 94 74-106 mg/dL Labs and/or images reviewed: Labs reviewed by me, Image(s) reviewed by me Problem List/Assessment/Plan Problem List/Assessment/Plan COVID 19 infection Not requiring oxygen more Bilateral flank pain, ruled out pyelonephritis Ruled out cystitis Renal ultrasound unremarkable Receiving were 1 g ceftriaxone IV Status post left heart catheterization 01/31 diagnosed with Spontaneous coronary artery dissection diagnosed at [facility] Hypertension NSTEMI, downtrending troponin Cardiology recommended continuing aspirin, Plavix, atorvastatin, and nitroglycerin sublingual Pending medical records Transaminitis secondary to hepatic steatosis Status post cholecystectomy Abdominal ultrasound shows Hepatic steatosis.Common bile duct measures 1.3 cm. This is likely slightly enlarged post cholecystectomy. Clinical correlation advised. MRCP pending Chronic nicotine dependence History of meth and cannabis use Recommended cessation for more than 32 minute Obesity Recommended physical Vitamin-D deficiency Supplemented Plan discussed with patient in which all questions have been answered Goals of care discussed with patient for more than 28, full code status Case discussed with Dr. Plunkett Plan discussed with: Patient, Spouse (The bedside) My Orders My Orders Orders - SHARRON WORLEY Procedure Category Date Status Time Abdomen Complete US 02/05/25 Resulted Sonogram 09:58 Ergocalciferol PHA 02/05/25 In Process (Vitamin D 50,000 10:00 Mrcp Mri MRI 02/05/25 Logged 15:08 Date of Service: Feb 05, 2025 Billing Provider: BILLY PLUNKETT DO Common Visit Codes: [id number] INP/OBS CARE(HIGH) SHARRON WORLEY Feb 05, 2025 15:24 BILLY PLUNKETT DO Feb 13, 2025 07:36
[2025-02-05] MEDS ORDERED: ERGOCALCIFEROL 50,000 UNIT(1.25MG) CAP PO SCH (15:45)
[2025-02-05] MEDS ORDERED: AMLO1TAB22 PO (16:42)
[2025-02-05 18:00] VITALS: BP 152/86; PULSE 82; RESP 18; TEMP 99; O2SAT 96
[2025-02-05 18:05] VITALS: PULSE 82; RESP 18; O2SAT 96
[2025-02-05 20:00] VITALS: PULSE 77; PULSE 84; RESP 18; O2SAT 95
[2025-02-05 21:00] VITALS: BP 144/93; PULSE 84; RESP 18; TEMP 99.3; O2SAT 95
[2025-02-05] MEDS: ACETAMINOPHEN 325 MG TAB PO PRN (21:56)
[2025-02-06] VITALS (9 sets, daily range): BP systolic 115–144; BP diastolic 73–87; PULSE 63–92; RESP 18–19; TEMP 97.7–99.2; O2SAT 94–97
[2025-02-06 06:58] LABS: Albumin 4.4 g/dL (3.2-4.8); Alkaline Phosphatase 109 U/L (46-116); Anion Gap 9 (5-15); BUN/Creatinine Ratio 12.6 (10.0-20.0); Bilirubin, Total 0.4 mg/dL (0.2-1.0); Blood Urea Nitrogen 12 mg/dL (9-23); Calcium 9.3 mg/dL (8.7-10.4); Carbon Dioxide 24 mmol/L (20-31); Glucose 104 mg/dL (74-106); Magnesium 1.9 mg/dL (1.6-2.6); Potassium 3.8 mmol/L (3.5-5.1); Sodium 141 mmol/L (136-145); Total Protein 7.1 g/dL (5.7-8.2)
[2025-02-06 07:01] LABS: Alanine Aminotransferase 169 U/L (7-40); Aspartate Aminotransferase 78 U/L (13-40); Chloride 108 mmol/L (98-107)
--- NOTE | 2025-02-06 07:54 | DVHPN2 ---
Consult Progress Note Date Seen: Feb 06, 2025 Subjective Review of Systems: CVS:Normal, RESPIRATORY:Abnormal, NEURO:Normal Other Systems: C/o very mild SOB otherwise cardiac asymptomatic Objective vital signs Vital Sign Date Time Temp Pulse Resp B/P (MAP) Pulse Ox O2 Delivery O2 Flow Rate FiO2 02/06/25 05:00 98.7 70 18 119/83 (95) 96 98.7 02/05/25 20:00 Room Air* 0 21 Total Intake and Output 02/05/25 02/05/25 02/06/25 15:00 23:00 07:00 Intake Total 50 ml 300 ml Output Total 1200 ml Balance -1200 ml 50 ml 300 ml medications Current Medications Medications Dose Ordered Sig/Froy Route Start Time Stop Time Status Last Admin Dose Admin Nicotine 1 patch DAILY TD 02/05/25 10:00 Aspirin 81 mg DAILY PO 02/05/25 10:00 02/05/25 10:53 81 MG Clopidogrel Bisulfate 75 mg DAILY PO 02/05/25 10:00 02/05/25 10:53 75 MG Atorvastatin Calcium 20 mg HS PO 02/04/25 22:00 02/05/25 21:56 20 MG Isosorbide Mononitrate 30 mg DAILY PO 02/05/25 10:00 Nitroglycerin 0.4 mg Q5MINP PRN SL 02/04/25 19:00 Morphine Sulfate 2 mg Q30M PRN IV 02/04/25 19:00 Ceftriaxone Sodium 50 ml @ 100 mls/hr DAILY@09 IV 02/05/25 09:00 02/05/25 10:52 100 MLS/HR Acetaminophen/ Hydrocodone Bitart 1 tab Q4HP PRN PO 02/04/25 19:00 02/04/25 20:54 1 TAB Ondansetron HCl 4 mg Q4HP PRN IV 02/04/25 19:00 Acetaminophen 650 mg Q6HP PRN PO 02/04/25 19:00 02/05/25 21:56 650 MG Ergocalciferol 50,000 unit Q7D PO 02/05/25 10:00 02/05/25 11:05 50,000 UNIT Examination: LUNGS:Normal, CVS:Normal, NEURO:Normal laboratory and microbiology Laboratory Tests 02/06/25 05:20 02/05/25 03:54 Test 02/06/25 05:20 Range/Units Serum Glucose 104 74-106 mg/dL Problem List/Assessment/Plan Problem List/Assessment/Plan NSTEMI with recent diagnosis of spontaneous coronary artery dissection COVID-19 infection Hypertension Recent tobacco use Cannabinoid use Obesity Plan/Recommendation (Dr. Scanlon) The patient with flat troponin levels in the 1000s ng/L continues chest pain- free and with 12-lead electrocardiograms without evidence of ischemia. He was recently discharged from [facility] undergoing a recent cardiac catheterization without catheter based intervention and paperwork with diagnosis of SCAD. He was discharged home on DAPT, lipid lowering agent, isosorbide mononitrate, and NTG SL p.r.n. Medical records including cardiac catheterization and transthoracic echocardiogram have not been obtained so far. In the setting of an unremarkable echocardiogram, there is no further cardiac work-up indicated at this time. Thank you for allowing us to participate in this patient's care. This medical document was created using an electronic medical record system with voice recognition software and computerized dictation system. Although this document has been carefully reviewed, there might still be some phonetic and typographical errors. Occasional wrong-word or ``sound-alike substitutions may have occurred due to the inherent limitations of voice recognition software. These areas are purely typographical due to imperfections of the software programs and do not reflect any compromise in the patient's medical care. Please read the chart carefully and recognize, using context, where these substitutions have occurred. Plan discussed with: Patient, Other Date of Service: Feb 06, 2025 Billing Provider: STEFFANY MAGANA Cardiology Common Codes: [id number] INP/OBS CARE(Mod) STEFFANY MAGANA Feb 06, 2025 07:54
--- NOTE | 2025-02-06 13:22 | ECG ---
[facility] Test Date: 2025-02-04 Test Time: 13:30:01 Pat Name: CARLOS LAMAR Department: ER Room: [facility]2T A Gender: M Coordinator Hotels: RICH : 1985 Requested By: ALAN HOBBS Order Number: [id number] Reading MD: Kin Scanlon Measurements Intervals [place] Rate: 110 P: 58 AR: 124 QRS: 123 QRSD: 97 T: 13 QT: 328 QTc: 444 Interpretive Statements Sinus tachycardia Consider right ventricular hypertrophy Borderline ST elevation, lateral leads Electronically Signed On 02-06-2025 22:34:11 PDT by Kin Scanlon Please click the below link to view image of tracing.
--- NOTE | 2025-02-06 15:36 | DVHPNRES ---
Progress Note Date Seen: Feb 06, 2025 Resident Creating Document: SHARRON WORLEY RESIDENT Medical Necessity Reason Pt with a Central, PICC or Fol: No Subjective Review of Systems 39-year-old male with past medical history of dyslipidemia, hypertension, cholecystectomy who presented to the ER with a chief fever, chills and bilateral flank pain. Patient was recently hospitalized [place] for chest pain where he was diagnosed with a spontaneous coronary artery dissection of an angiogram was performed, no stent was placed and patient was discharged on aspirin, atorvastatin, Plavix, Imdur and sublingual nitroglycerin patient went home and developed bilateral flank pain radiating to the groin, turbid urine, but denies hematuria or dysuria or urgency. In the ER, patient was febrile at 100.4 F, now afebrile. He was tachycardic but normotensive on room air, CBC was unremarkable. Tropes were trending up 1200, now trending down. BNP was 32, Cardiology was consulted recommended monitor troponin, initiated aspirin and Plavix and Imdur. Head CT was completed which showed unremarkable, abdominal CT was unremarkable, chest x-ray was negative. Liver ultrasound showed status post cholecystectomy changes along with CBD dilation. MRCP was ordered. Past medical/surgical history: See above Home medications: Aspirin, Plavix, atorvastatin, Imdur, sublingual nitroglycerin Social history: Smokes a pack of cigarettes for the past 20 years, quit 1 week, reports remote history of cocaine and meth he was 3 years ago, quit 02/05-Patient seen and examined in the ER. MRCP could not be completed as the patient is COVID positive 02/06/2025-patient seen and examined at the bedside. troponin trending down, flank pain. Febrile episodes are likely due to COVID positive. Prelim blood culture negative. Patient showed [place] chart on phone, underwent left heart catheterization showed suspected SCAD of left circumflex originating from RCA. Completed by Dr. Saad Courtney. Echocardiogram was completed at [place], showed LVEF 60%. LA dilation. Objective vital signs Vital Sign Date Time Temp Pulse Resp B/P (MAP) Pulse Ox O2 Delivery O2 Flow Rate FiO2 02/06/25 12:30 97.8 70 18 138/78 (98) 96 97.8 02/06/25 08:05 Room Air* 0 21 Total Intake and Output 02/05/25 02/05/25 02/06/25 15:00 23:00 07:00 Intake Total 50 ml 300 ml Output Total 1200 ml Balance -1200 ml 50 ml 300 ml medications Current Medications Medications Dose Ordered Sig/Froy Route Start Time Stop Time Status Last Admin Dose Admin Nicotine 1 patch DAILY TD 02/05/25 10:00 Aspirin 81 mg DAILY PO 02/05/25 10:00 02/06/25 10:50 81 MG Clopidogrel Bisulfate 75 mg DAILY PO 02/05/25 10:00 02/06/25 10:51 75 MG Atorvastatin Calcium 20 mg HS PO 02/04/25 22:00 02/05/25 21:56 20 MG Isosorbide Mononitrate 30 mg DAILY PO 02/05/25 10:00 02/06/25 10:52 30 MG Nitroglycerin 0.4 mg Q5MINP PRN SL 02/04/25 19:00 Morphine Sulfate 2 mg Q30M PRN IV 02/04/25 19:00 Ceftriaxone Sodium 50 ml @ 100 mls/hr DAILY@09 IV 02/05/25 09:00 02/06/25 10:50 100 MLS/HR Acetaminophen/ Hydrocodone Bitart 1 tab Q4HP PRN PO 02/04/25 19:00 02/04/25 20:54 1 TAB Ondansetron HCl 4 mg Q4HP PRN IV 02/04/25 19:00 Acetaminophen 650 mg Q6HP PRN PO 02/04/25 19:00 02/05/25 21:56 650 MG Ergocalciferol 50,000 unit Q7D PO 02/05/25 10:00 02/05/25 11:05 50,000 UNIT Examination Patient lying in bed, in no acute distress General: Well-built, afebrile, palor, mucosae are moist Cardiovascular: Regular S1 and S2. No murmurs, gallops or rubs. No JVD elevation. No pedal edema Respiratory: Normal B/L air entry on room air. Clear lung sounds on auscultation Abdomen: Soft, nontender, nondistended, normoactive bowel sounds, no rebound tenderness, no organomegaly, no masses bilateral costovertebral angle tenderness Genitourinary: Deferred MSK/skin: Mobilizes 4 limbs. Skin is dry and warm Neurological: No motor, no sensitive deficits, normal speech. Pupils are isocoric and reactive. Psych/Mental Status: A/Ox3 laboratory and microbiology Laboratory Tests 02/06/25 05:20 02/05/25 03:54 Test 02/06/25 05:20 Range/Units Serum Glucose 104 74-106 mg/dL Microbiology Date/Time Source Procedure Growth Status 02/04/25 17:18 Blood Blood Culture - Preliminary NO GROWTH AFTER 24 HOURS OF INCUBATION. Resulted Labs and/or images reviewed: Labs reviewed by me, Image(s) reviewed by me Problem List/Assessment/Plan Problem List/Assessment/Plan COVID 19 infection Not requiring oxygen more Bilateral flank pain, ruled out pyelonephritis Ruled out cystitis Renal ultrasound unremarkable Receiving were 1 g ceftriaxone IV Status post left heart catheterization 01/31 diagnosed with Spontaneous coronary artery dissection diagnosed at [place] Hypertension NSTEMI, downtrending troponin, denies chest pain Cardiology recommended continuing aspirin, Plavix, atorvastatin, and nitroglycerin sublingual Patient showed [place] chart on phone, underwent left heart catheterization showed suspected SCAD of left circumflex originating from RCA. Completed by Dr. Saad Courtney. Echocardiogram was completed at [place], showed LVEF 60%. LA dilation. Pending medical records Troponins downtrending Transaminitis secondary to hepatic steatosis Status post cholecystectomy Abdominal ultrasound shows Hepatic steatosis.Common bile duct measures 1.3 cm. This is likely slightly enlarged post cholecystectomy. Clinical correlation advised. MRCP could not be completed as the patient is COVID-19 positive Chronic nicotine dependence History of meth and cannabis use Recommended cessation for more than 32 minute Obesity Recommended physical Vitamin-D deficiency Supplemented Plan discussed with patient in which all questions have been answered Goals of care discussed with patient for more than 28, full code status Case discussed with Dr. Plunkett Plan discussed with: Patient My Orders My Orders Orders - SHARRON WORLEY Procedure Category Date Status Time Mrsa Screen KEIKO 02/05/25 In Process 18:49 Date of Service: Feb 06, 2025 Billing Provider: BILLY PLUNKETT DO Common Visit Codes: [id number] INP/OBS CARE(HIGH) SHARRON WORLEY Feb 06, 2025 15:36 BILLY PLUNKETT DO Feb 13, 2025 07:36
--- NOTE | 2025-02-06 16:56 | DVHSR ---
APPROVED REPORT EXAM: Two-dimensional and M-mode echocardiogram with Doppler and color Doppler. Blood Pressure: 132/76 mmHg INDICATION Recent SCAD RISK FACTORS Obesity: Height: 6'0", Weight: 240 DIMENSIONS LVDd4.4 (3.8-5.7cm)LA (2D)3.1 (1.9-4.0cm)Aortic Root3.9 (2.0-3.7cm) LVDs3.0 (2.5-4.0cm)LA (MM) (1.9-4.0cm)Aortic Cusp Exc2.0 (1.5-2.0cm) EF (%) 60.0 (55-70%)Rt. Atrium3.4 (1.9-4.0cm)Asc. Aorta cm IVSd1.0 (0.7-1.1cm)RV (D) (1.8-2.4cm) PWd1.1 (0.7-1.1cm) Mitral Valve MitralMitral Stenosis E wave0.90m/sMV Mean GR.mmHg A wave0.87m/sMV Peak GR.mmHg E/A ratio1.02D MVAcm2 DECEL [id number] 1/2 Timems Aortic Valve Aortic ValveAortic Stenosis V11.08m/Kevin Mean GR.4mmHg V21.38m/Kevin Peak GR.8mmHg LVOT Diameter2.4 (1.8-2.4cm)Doppler AVA3.54cm2 Pulmonic Valve V21.35m/s Other Information Technically limited study due to body habitus. Conclusion Technically good study. Sinus rhythm. Normal chamber sizes. Valves are normal. EF of 60% with normal RV function. Dopplers unremarkable. No pericardial effusion masses or vegetations.
[2025-02-06] MEDS: MELATONIN 5 MG TAB PO ONE (23:51)
[2025-02-07 01:00] VITALS: BP 103/63; PULSE 61; RESP 18; TEMP 97.9; O2SAT 97
[2025-02-07 05:00] VITALS: BP 108/66; PULSE 63; RESP 18; TEMP 97.9; O2SAT 97
[2025-02-07 06:39] LABS: Anion Gap 8 (5-15); Calcium 9.4 mg/dL (8.7-10.4); Carbon Dioxide 26 mmol/L (20-31); Potassium 3.9 mmol/L (3.5-5.1); Sodium 142 mmol/L (136-145)
[2025-02-07 06:45] LABS: BUN/Creatinine Ratio 14.4 (10.0-20.0); Blood Urea Nitrogen 14 mg/dL (9-23); Glucose 89 mg/dL (74-106)
[2025-02-07 06:47] LABS: Chloride 108 mmol/L (98-107)
[2025-02-07 08:00] VITALS: PULSE 56
[2025-02-07 08:31] VITALS: BP 118/72; PULSE 64; RESP 18; TEMP 98; O2SAT 98
--- NOTE | 2025-02-07 09:46 | ECG ---
[facility] Test Date: 2025-02-06 Test Time: 17:44:24 Pat Name: CARLOS LAMAR Department: Room: 0282T A Gender: M Clothing Designer: HONORIO : 1985 Requested By: SHARRON WORLEY Order Number: [id number] Reading MD: Kin Scanlon Measurements Intervals [place] Rate: 75 P: 26 WV: 138 QRS: 81 QRSD: 103 T: 44 QT: 381 QTc: 426 Interpretive Statements Sinus rhythm RSR' in V1 or V2, right VCD or RVH ST elev, probable normal early repol pattern Baseline wander in lead(s) V5 Electronically Signed On 02-09-2025 17:10:49 PDT by Kin Scanlon Please click the below link to view image of tracing.
--- NOTE | 2025-02-07 12:10 | DVHDSRES ---
Discharge Summary Date of Admission Resident Creating Document: SHARRON WORLEY RESIDENT Feb 04, 2025 at 18:46 Date of Discharge: Feb 07, 2025 Labs/Diagnostic Data: Laboratory Results Test 02/07/25 04:34 02/06/25 05:20 02/05/25 12:17 02/05/25 08:32 Sodium Level 142 mmol/L (136-145) Potassium Level 3.9 mmol/L (3.5-5.1) Chloride Level 108 mmol/L (98-107) Carbon Dioxide Level 26 mmol/L (20-31) Anion Gap 8 (5-15) Blood Urea Nitrogen 14 mg/dL (9-23) Creatinine 0.97 mg/dL (0.700-1.30) Glomerular Filtration Rate Calc 103 mL/min (>90) BUN/Creatinine Ratio 14.4 (10.0-20.0) Serum Glucose 89 mg/dL (74-106) Calcium Level 9.4 mg/dL (8.7-10.4) Troponin I High Sensitivity 1171 ng/L (</=54) Magnesium Level 1.9 mg/dL (1.6-2.6) Total Bilirubin 0.4 mg/dL (0.2-1.0) Aspartate Amino Transferase (AST) 78 U/L (13-40) Alanine Aminotransferase (ALT) 169 U/L (7-40) Alkaline Phosphatase 109 U/L (46-116) Total Protein 7.1 g/dL (5.7-8.2) Albumin 4.4 g/dL (3.2-4.8) Influenza Type A Antigen Negative (Negative) Influenza Type B Antigen Negative (Negative) SARS-CoV-2 Antigen (Rapid) Positive (NEGATIVE) Prothrombin Time 10.3 sec (9.3-11.8) Prothrombin Time INR 0.97 (0.9-1.15) Activated Partial Thromboplast Time 29.0 SEC (24.5-34.5) Test 02/05/25 03:54 02/04/25 17:50 02/04/25 17:18 02/04/25 14:04 White Blood Count 5.4 10^3/uL (4.4-10.8) Red Blood Count 4.46 10^6/uL (4.5-5.90) Hemoglobin 13.7 g/dL (13.5-17.5) Hematocrit 39.9 % (41.0-53.0) Mean Corpuscular Volume 89.5 fL (80.0-100.0) Mean Corpuscular Hemoglobin 30.6 pg (28.0-32.0) Mean Corpuscular Hemoglobin Concent 34.2 g/dL (32.0-36.0) Red Cell Distribution Width 12.4 % (11.8-14.3) Platelet Count 124 10^3/uL (140-450) Mean Platelet Volume 9.4 fL (6.9-10.8) Neutrophils (%) (Auto) % (37.0-80.0) Lymphocytes (%) (Auto) % (10.0-50.0) Monocytes (%) (Auto) % (0.0-12.0) Basophils (%) (Auto) % (0.0-2.0) Neutrophils # (Auto) 10 ^3/uL (1.6-8.6) Lymphocytes # (Auto) 10 ^3/uL (0.4-5.4) Monocytes # (Auto) 10 ^3/uL (0-1.3) Differential Total Cells Counted 100.0 (100) Neutrophils % (Manual) 65 (37.0-80.0) Band Neutrophils % (Manual) 7 Lymphocytes % (Manual) 16 (10.0-50.0) Monocytes % (Manual) 12 (0-12) Eosinophils % (Manual) 0 (0-7) Basophils % (Manual) 0 (0.0-2.0) Metamyelocytes % (manual) 0 Myelocytes % (Manual) 0 Promyelocytes % (Manual) 0 Blast Cells % (Manual) 0 Reactive Lymphocytes 0 Platelet Estimate Decreased Erythrocyte Sedimentation Rate 10 mm/hr (0-20) Direct Bilirubin 0.2 mg/dL (<0.3) C-Reactive Protein High Sensitivity 1.84 mg/dL (<1.0) Vitamin B12 Level 627 pg/mL (211-911) Vitamin D 25-Hydroxy 19.7 ng/mL (30.0-100) Thyroid Stimulating Hormone (TSH) 0.54 uIU/mL (0.55-4.78) Free Thyroxine (T4) Calculated 1.14 ng/dL (0.89-1.76) Total Triiodothyronine (TT3) 0.85 ng/mL (0.60-1.81) Urine Color Yellow (Yellow) Urine Clarity Clear (Clear) Urine pH 6.0 (5.0-9.0) Urine Specific [place] 1.042 (1.001-1.035) Urine Protein 1+ (Negative) Urine Ketones 1+ (Negative) Urine Blood Negative /uL (Negative) Urine Nitrite Negative (Negative) Urine Bilirubin Negative (Negative) Urine Urobilinogen Normal mg/dL (Negative) Urine Leukocyte Esterase Negative /uL (Negative) Urine RBC <1 /hpf (0 - 3) Urine Microscopic WBC 1 /HPF (0-3) Urine Squamous Epithelial Cells Few /hpf (<5) Urine Bacteria None seen /hpf (None Seen) Urine Granular Casts Few /lpf (0) Urine Mucus Few (None Seen) Urine Glucose Normal mg/dL (Normal) Urine Opiates Screen Neg (NEGATIVE) Urine Fentanyl Screen Neg (NEGATIVE) Urine Barbiturates Screen Neg (NEGATIVE) Urine Phencyclidine Screen Neg (NEGATIVE) Urine Amphetamines Screen Neg (NEGATIVE) Urine Benzodiazepines Screen Neg (NEGATIVE) Urine Cocaine Screen Neg (NEGATIVE) Urine Cannabinoids Screen Pos (NEGATIVE) Lactic Acid Level 1.4 mmol/L (0.4-2.0) Eosinophils (%) (Auto) 0.9 % (0.0-7.0) Eosinophils # (Auto) 0.1 10 ^3/uL (0-0.8) Basophils # (Auto) 0 10 ^3/uL (0-0.2) Nucleated Red Blood Cells 0.1 % B-Type Natriuretic Peptide 32.65 pg/mL (0-100) Other Laboratory Tests 02/07/25 04:34 02/05/25 03:54 Brief Hx & Hospital Course: 39-year-old male with past medical history of dyslipidemia, hypertension, cholecystectomy who presented to the ER with a chief fever, chills and bilateral flank pain. Patient was recently hospitalized [place] for chest pain where he was diagnosed with a spontaneous coronary artery dissection of an angiogram was performed, no stent was placed and patient was discharged on aspirin, atorvastatin, Plavix, Imdur and sublingual nitroglycerin patient went home and developed bilateral flank pain radiating to the groin, turbid urine, but denies hematuria or dysuria or urgency. In the ER, patient was febrile at 100.4 F, now afebrile. He was tachycardic but normotensive on room air, CBC was unremarkable. Tropes were trending up 1200, now trending down. BNP was 32, Cardiology was consulted recommended monitor troponin, initiated aspirin and Plavix and Imdur. Head CT was completed which showed unremarkable, abdominal CT was unremarkable, chest x-ray was negative. Liver ultrasound showed status post cholecystectomy changes along with CBD dilation. MRCP was ordered. Past medical/surgical history: See above Home medications: Aspirin, Plavix, atorvastatin, Imdur, sublingual nitroglycerin Social history: Smokes a pack of cigarettes for the past 20 years, quit 1 week, reports remote history of cocaine and meth he was 3 years ago, quit During the hospitalization, patient was diagnosed with COVID-19 infection. Did not require oxygen therapy. Patient had febrile episodes for which with culture was completed which was unremarkable. UA was unremarkable, renal ultrasound ruled out pyelonephritis. Cardiology was consulted for elevated troponins, recommended continuing aspirin, Plavix, atorvastatin and nitroglycerin sublingual. Also recommended monitoring troponin, which trended down. Serial EKGs were completed which were unremarkable for ST elevation or ST changes. Patient showed [place] chart on phone, underwent left heart catheterization showed suspected SCAD of left circumflex originating from RCA. Completed by Dr. Saad Courtney. Echocardiogram was completed at [place], showed LVEF 60%. LA dilation. Abdominal ultrasound completed, shows hepatic steatosis. CBD measures 1.3 cm likely slightly enlarged full cholecystectomy. Patient had no abdominal complaints or symptoms. MRCP could not be completed given the COVID status. 02/07-patient is hemodynamically stable, clinically stable reports no acute distress therefore has been discharged home with the recommendation to follow with fibreglass laminator as outpatient within 7 days, primary care physician within 7 days in discharge clinic appointment within 7 days. He was strongly advised to continue isolating himself especially from elderly and children and to avoid crowded spaces. Discharge diagnosis COVID 19 infection bilateral flank pain, ruled out pyelonephritis Ruled out cystitis Status post left heart catheterization 01/31 diagnosed with Spontaneous coronary artery dissection diagnosed at [place] Hypertension NSTEMI, downtrending troponin, denies chest pain Transaminitis secondary to hepatic steatosis Status post cholecystectomy chronic nicotine dependence History of meth and cannabis use Obesity Vitamin-D deficiency Consults/Reason for consult Cardiology for elevated trop Operations or Procedures ORDERING PHYSICIAN: MAGANA,STEFFANY DIRECTOR OF MARKETING OPERATIONS PROCEDURE(s): ABPEL - CT AB PELVIS W WO CON-IV ONLY REASON: Flank pain bilaterally ORDER NUMBER(s): [id number], ACCESSION NUMBER(s): [id number] Exam: CT CT AB PELVIS W WO CON-IV ONLY History: Flank pain bilaterally Comparison Study: None available at time of dictation. Technique: Multidetector spiral CT of the abdomen and pelvis was performed from lung bases to pubic symphysis. Initial imaging was done without IV contrast, followed by post contrast images of the abdomen and pelvis. Intravenous contrast was administered during this examination. portal venous/arterial/multiphase imaging was obtained. Axial, coronal and sagittal multiplanar reformats were performed by the technologist on a separate workstation. Radiation Dose : CT Dose: CTDI volume is 23 mGy. Dose-length product is 1354 mGy*cm Findings: Lung Bases: No acute or significant lung base finding. Normal heart size. No pleural or pericardial effusion. Liver: The liver is normal in size. No focal lesions. Normal hepatic vascular enhancement. Gallbladder and Biliary Tree: Gallbladder has been removed. No biliary dilatation. Spleen: Unremarkable Pancreas: The pancreas is normal in appearance without focal lesions or abnormal enhancement. Adrenal Glands: Unremarkable Kidneys: Kidneys demonstrate normal symmetric enhancement without focal lesions, calculi or hydronephrosis. Bladder: Unremarkable Bowel: The stomach is grossly normal in appearance. Small bowel and colon are normal in caliber and distribution. The appendix is not visualized; however, no secondary findings of acute appendicitis identified. Ascites: Absent Lymphadenopathy: No mesenteric, retroperitoneal or periportal lymphadenopathy. Abdominal Wall and Mesentery: Unremarkable. Vasculature: The visualized abdominal aorta is normal in size and caliber. Abdominal and pelvic vessels demonstrate normal enhancement. Pelvic Organs: Unremarkable Musculoskeletal: No aggressive focal bony lesions, acute fractures or dislocation. IMPRESSION: 1. No acute abdominal or pelvic finding. No evidence of urinary tract stones or obstructive uropathy. Radiation optimization: All CT scans at this facility use at least one of these dose optimization techniques: automated exposure control mA and/or kV adjustment per patient size (includes targeted exams where dose is matched to clinical indication) or iterative reconstruction. ATED BY: LAUREEN CAMPBELL MD DICTATED DATE/TIME: 02/04/25 557 SIGNED BY: LAUREEN CAMPBELL MD SIGNED DATE/TIME: 02/04/25 6366 CC: Condition at Discharge: Stable Final Diagnosis/Problems List COVID 19 infection bilateral flank pain, ruled out pyelonephritis Ruled out cystitis Status post left heart catheterization 01/31 diagnosed with Spontaneous coronary artery dissection diagnosed at [place] Hypertension NSTEMI, downtrending troponin, denies chest pain Transaminitis secondary to hepatic steatosis Status post cholecystectomy chronic nicotine dependence History of meth and cannabis use Obesity Vitamin-D deficiency Discharge Disposition: Home Discharge Instruct/Medications Diet: Cardiac 2g Na,low cholest Activity: No Restrictions, As Tolerated Follow Up/Referral: Follow up with primary care physician within 7 days Follow up with fibreglass laminator within 7 days Discharge Statement: "Patient was advised to return to the ER or call 911 if any headaches, dizziness, shortness of breath, chest pain, abdominal pain, bleeding, fevers, or worsening of medical condition. Patient was counseled about treatment plan, medications, possible side effects, patientverbalized understanding. All questions were answered to the best of my ability. This discharge took greater then 30 minutes in planning, reviewing documentation, counseling the patient, and discussing with other team members." ASSESSMENT ASSESSMENT Assessment COVID 19 infection Bilateral flank pain, likely muscular ruled out pyelonephritis Ruled out cystitis Hypertension NSTEMI, downtrending troponin, denies chest pain Transaminitis secondary to hepatic steatosis Status post cholecystectomy Date of Service: Feb 07, 2025 Billing Provider: BILLY PLUNKETT DO Common Visit Codes: [id number] DISCH DAY >30min SHARRON WORLEY RESIDENT Feb 07, 2025 12:10 BILLY PLUNKETT DO Feb 13, 2025 07:37
[2025-02-07] MEDS ORDERED: CHOL500021 OR (12:11)
[2025-02-07 12:42] VITALS: BP 118/72; TEMP 36.7
--- NOTE | 2025-02-07 12:58 | ECG ---
[facility] Test Date: 2025-02-07 Test Time: 11:02:15 Pat Name: CARLOS LAMAR Department: Respiratoy Room: 0282T A Gender: M Rehabilitation Team Lead: LORENA : 1985 Requested By: STEFFANY MAGANA Order Number: [id number] Reading MD: Kin Scanlon Measurements Intervals [place] Rate: 65 P: 27 CT: 142 QRS: 66 QRSD: 107 T: 56 QT: 398 QTc: 414 Interpretive Statements Sinus rhythm RSR' in V1 or V2, right VCD or RVH ST elev, probable normal early repol pattern Electronically Signed On 02-09-2025 17:11:26 PDT by Kin Scanlon Please click the below link to view image of tracing.
[2025-02-07 13:00] VITALS: BP 127/81; PULSE 79; RESP 18; TEMP 98.1; O2SAT 97
== END 2025-02-07 14:48 | disposition home or self-care (01) | DRG 137 ==
LOC: ER 13:12 → OVERFLOW 18:46 → TELE-WESTW 02-05 17:59
PROVIDERS: ADMIT Internal Medicine; ATTEND Internal Medicine
DX: U07.1 COVID-19 (principal); I21.4 Non-ST elevation (NSTEMI) myocardial infarction; K76.0 Fatty (change of) liver, not elsewhere classified; E66.9 Obesity, unspecified; Z68.32 Body mass index [BMI] 32.0-32.9, adult; G43.909 Migraine, unspecified, not intractable, without status migrainosus; I10 Essential (primary) hypertension; E78.5 Hyperlipidemia, unspecified; E55.9 Vitamin D deficiency, unspecified; F12.90 Cannabis use, unspecified, uncomplicated; Z87.891 Personal history of nicotine dependence; Z83.3 Family history of diabetes mellitus; Z82.3 Family history of stroke; Z90.49 Acquired absence of other specified parts of digestive tract
CPT/HCPCS: 36415; 70450; 71045; 74178; 76700; 80048; 80053; 80076; 80307; 81001; 82306; 82607; 83605; 83735; 83880; 84439; 84443; 84480; 84484; 85007; 85025; 85027; 85610; 85652; 85730; 86141; 87040; 87081; 87426; 87804; 93005; 93306; 99291; G0378; J2405